=== PATIENT | male | born 2000 | race African-American/Black ===

== ENCOUNTER 2020-10-28 16:28 | Emergency (ER) | payer SELFPAY ==
[~2020-10-28] VITALS: Ht 170.2 cm; Wt 68.0 kg
[2020-10-28] MEDS ORDERED: HALOPERIDOL LACTATE 5MG/ML VIAL IM STA (17:30)
[2020-10-28] MEDS ORDERED: LORAZEPAM 2MG/ML CPJ IM ONE (18:00)
[2020-10-28 18:43] LABS: HEMATOCRIT. 40.9 % (42.0-52.0); HEMOGLOBIN. 14.1 g/dL (14.0-18.0); MEAN CORPUSCULAR HEMOGLOBIN 30.6 pg (28.0-32.0); MEAN PLATELET VOLUME 6.9 fl (7.4-10.4); PLATELET 316 x1000/uL (130-400); RED BLOOD CELL COUNT 4.59 mill/uL (4.7-6.1); RED CELL DISTRIBUTION WIDTH 13.7 % (11.6-14.6)
[2020-10-28 18:50] LABS: CHLORIDE 107 mEq/L (98-107)
[2020-10-28 18:55] LABS: ETHANOL BLOOD < 10 mg/dL
[2020-10-28 19:23] LABS: CLARITY URINE CLEAR (CLEAR); COLOR URINE DARK YELLOW (YELLOW); KETONES URINE 1+ (NEGATIVE); LEUKOCYTE ESTERASE URINE NEGATIVE (NEGATIVE); NITRITE URINE NEGATIVE (NEGATIVE); OCCULT BLOOD URINE TRACE (NEGATIVE); PH URINE 6.5 (4.5-8.0); PROTEIN URINE TRACE (NEGATIVE); SPECIFIC GRAVITY URINE 1.026 (1.005-1.030)
[2020-10-28 19:33] LABS: *BARBITURATES SCREEN URINE NEGATIVE (NEGATIVE); *BENZODIAZEPINES SCREEN URINE NEGATIVE (NEGATIVE); CANNABINOID URINE SCREEN PRESUMTIVE POSITIVE (NEGATIVE)
[2020-10-28 19:34] LABS: *AMPHETAMINES SCREEN URINE PRESUMTIVE POSITIVE (NEGATIVE); *COCAINE SCREEN URINE NEGATIVE (NEGATIVE); METHADONE URINE SCREEN NEGATIVE (NEGATIVE); OPIATES URINE SCREEN NEGATIVE (NEGATIVE); PHENCYCLIDINE URINE SCREEN NEGATIVE (NEGATIVE)
[2020-10-28 19:35] LABS: PLATELET ESTIMATE NORMAL
[2020-10-29 02:16] VITALS: BP 110/62
== END 2020-10-29 02:20 | disposition home or self-care (01) ==
LOC: ER 16:28 → EDBD 16:28 → ER 10-29 02:20
DX: T50.991A Poisoning by other drugs, medicaments and biological substances, accidental (unintentional), initial encounter (principal); Y92.9 Unspecified place or not applicable
CPT/HCPCS: 36415; 80053; 80305; 80307; 80320; 80329; 81003; 85025; 96372; 99291; J1630; J2060; Z7610; 99285; G0480